=== PATIENT | male | born 1995 | race Caucasian/White ===

== ENCOUNTER 2024-11-27 17:08 | Emergency (ER) | payer OTHER, SELFPAY ==
[2024-11-27 17:10] VITALS: BP 155/91
--- NOTE | 2024-11-27 18:33 | ED.SKININJ ---
HPI-Injury
General
Chief Complaint: Skin Problem
Time Seen by Provider: 11/27/24 18:00
History of Present Illness-Injury
Initial Injury comments:
Patient presents with left-sided facial swelling. Symptoms began 4 days ago. He was seen at urgent care yesterday and started on Bactrim. Today it is still swollen and there is some yellow crusty drainage. Denies any fevers or chills. Denies
any tooth pain or infections. Denies any ear pain.
Phy Exam
Physical Exam
Physical Exam:
General: No acute distress
Head: NCAT
ENT: There is some soft tissue swelling overlying the left zygoma. There are multiple small pustules in this area but no large amount of fluctuance. External auditory canal and TM is within normal limits. No mastoid tenderness. No swelling or
purulence in the mouth or under the tongue. Neck is supple. There is no gross lymphadenopathy. Tolerating secretions.
Respiratory: No Respiratory distress
Abdomen: No distension
Ext: no edema
Neuro: SERRATO, AOx4
Psych: Normal affect
Skin: Normal color
Course
Orders/Labs/Results
Orders:
Orders
11/27/24 18:32
Cephalexin Monohydrate [Keflex] 500 mg PO NOW STA
Vital Signs
Initial and Last Documented VS:
Initial Vital Signs
Temp Pulse Resp BP Pulse Ox
98.2 F 94 16 155/91 99
11/27/24 17:10 11/27/24 17:10 11/27/24 17:10 11/27/24 17:10 11/27/24 17:10
Last Documented Vital Signs
Temp Pulse Resp BP Pulse Ox
98.2 F 94 16 155/91 99
11/27/24 17:10 11/27/24 17:10 11/27/24 17:10 11/27/24 17:10 11/27/24 18:36
*Pulse Oximetry
SaO2: 99
Oxygen Mode of Delivery: Room air
Patient hypoxic: no
*Critical Care Note
Total Time (30-74mins, 75-104mins- exclusive of procedures): Not Applicable
ED Attending Note
ED Attending Note
ED Attending Note:
Patient with a folliculitis and now mild facial cellulitis. No evidence of orbital , intraoral, or bony involvement. No evidence of [employer] infection. Patient is already on Bactrim with adequate MRSA coverage, however will add Keflex for Coverage.
Bedside ultrasound without any collection to drain at this time. Strict return precautions were given.
-
Portions of this chart may have been created with voice recognition software.� Occasional wrong word or��sound alike� substitutions may have occurred due to the inherent limitations of voice recognition software.
Discharge Plan
Departure
Patient Disposition: Home (Routine Discharge)
Date of Disposition: 11/27/24
Time of Disposition: 18:36
Patient with high blood pressure during this ER visit?: Yes
Discharge Problem:
Cellulitis
Instructions: Cellulitis (Skin Infection), Adult (DC)
Prescriptions:
New
cephalexin 500 mg capsule
500 mg PO QID 7 Days Qty: 28 0RF
No Action
amlodipine 10 mg Tablet
10 mg PO BID
sulfamethoxazole-trimethoprim [Bactrim DS] 800-160 mg Tablet
1 tab PO BID
Rx Instructions:
11/26/24-12/03/24
Referrals:
Ashley Monsivais CRNP [Family Provider, General]
Activity Restrictions/Additional Instructions:
Please follow-up closely with your primary doctor for recheck. Return to the emergency department with worsening swelling, fevers, vomiting.
Interventions
Interventions:
*Risk Screen - Suicide Last Done: 11/27/24 17:10
*Neglect/Abuse Screening Last Done: 11/27/24 17:10
*ED- Fall Risk Assessment Last Done: 11/27/24 17:10
*Nursing Disposition Last Done: 11/27/24 18:59
ED-Skin Assessment Last Done: 11/27/24 18:52
Discharge Date and Time
Discharge Date/Time: 11/27/24 18:59
Print Language: SLOVENIAN
[2024-11-27] MEDS: KEFLEX 500 MG PO (18:50)
== END 2024-11-27 18:59 | disposition home or self-care (01) ==
LOC: EMR 17:08
PROVIDERS: EMERGENCY PHYSICIAN Emergency Medicine; FAMILY PHYSICIAN Nurse Practitioner
DX: L03.211 Cellulitis of face (principal); R03.0 Elevated blood-pressure reading, without diagnosis of hypertension
CPT/HCPCS: 99283